=== PATIENT | female | born 1990 | race Two or more races ===

== ENCOUNTER 2021-06-08 09:32 | Outpatient (REF) | payer OTHER, SELFPAY ==
--- NOTE | ~2021-06-08 | MM_ITS ---
EXAMINATION: MM DIAGNOSTIC DIGITAL BREAST TOMOSYNTHESIS, BILATERAL US DIAGNOSTIC ULTRASOUND BREAST, BILATERAL CLINICAL INFORMATION: 31-year-old with intermittent cyclical anterior right breast pain. Patient notes prior history right breast abscess with surgery/aspiration. Clinical exam notes palpable nodularity left 6:00 under 1 cm and right breast 7:00 under 1 cm. No prior breast imaging. No known family history breast cancer. The lifetime risk of breast cancer based on the Tyrer-Cuzick Model is 11%. COMPARISON: None (current study represents initial baseline exam). TECHNIQUE: Digital breast tomosynthesis is performed in both the craniocaudal and mediolateral oblique views along with computer-aided detection (CAD). Synthesized 2D images are generated from the tomosynthesis. Additional exaggerated left CC view is provided. Ultrasound of both breasts is performed using grayscale imaging and color Doppler without and with harmonics. Left breast is imaged 4:00 through 8:00 position. Right breast is imaged lower lower breasts and lower outer quadrant and upper inner quadrant. Patient is able to point to the areas of clinical concern right breast at time of imaging. FINDINGS: The breasts are heterogeneously dense, which may obscure small masses (ACR BI-RADS breast composition Category c). There are no significant masses, abnormal calcifications, or other abnormalities. There is minor scarring anterior right breast with clip marker. The axilla and skin contours are otherwise unremarkable. There is no skin thickening or coarsening of the Anupam's ligaments. Ultrasound left breast demonstrates no cystic or solid mass or architectural abnormality. There is no focal duct ectasia. No skin thickening or edema tracking in soft tissue planes. Ultrasound right breast demonstrates no solid mass or architectural abnormality or focal duct ectasia. There is no skin thickening or edema tracking in soft tissue planes. There are 2 incidental simple cysts anterior upper right breast, the larger 1:00 position measuring 1.2 x 0.7 cm and the smaller 12:00 position 2 cm from nipple measuring under 1 cm. Results are discussed with the patient at time of visit. MM/MM tomosynthesis diagnostic BI IMPRESSION: 1. No mammographic evidence of malignancy or focal inflammatory changes. 2. 2 small cysts anterior upper right breast, larger only 1.2 cm. Left breast ultrasound unremarkable. ASSESSMENT: BI-RADS 2: Benign RECOMMENDATION: 1. Patient should be managed based on the clinical impression. If clinically indicated, further evaluation may be considered with surgical consult. Decision to proceed with biopsy should be based on clinical grounds and degree of clinical concern. 2. Otherwise, routine annual screening mammography, beginning age 40, or earlier as clinical risk factors warrant. This patient's information was entered into a reminder system with a target due date for their next mammogram.
== END 2021-06-08 09:33 | disposition home or self-care (01) ==
LOC: HO.MAMMO 09:32
PROVIDERS: PCP Nurse Practitioner Family; Visit Provider Nurse Practitioner Family
DX: N64.4 Mastodynia (principal)
CPT/HCPCS: 76642; 77062; 77066